=== PATIENT | male | born 1980 | race Caucasian/White ===

== ENCOUNTER 2018-06-23 11:08 | Emergency (ER) | payer OTHER ==
[~2018-06-23] VITALS: Ht 175.3 cm; Wt 75.0 kg
[2018-06-23 12:37] LABS: HEMOGLOBIN 14.4 g/dL (13.5-18.0); MEAN CELL VOLUME 90 fl (78-100); MEAN CORPUSCULAR HEMOGLOBIN 31 pg (27-31); MEAN CORPUSCULAR HGB CONC 35 g/dL (33-37); MEAN PLATELET VOLUME 10.7 fl (7.4-10.4); PLATELET COUNT 154 K/mm3 (130-400); RED BLOOD COUNT 4.58 M/mm3 (4.20-5.60); RED CELL DISTRIBUTION WIDTH 12.4 % (11.5-14.5); WHITE BLOOD COUNT 5.6 K/mm3 (4.8-10.8)
[2018-06-23] MEDS ORDERED: CYPROHEPTADINE H4 M1 PO (12:42)
[2018-06-23] MEDS ORDERED: LEXAPRO 10MG10 MG PO (12:42)
[2018-06-23 12:51] LABS: BAND 1 % (0-10); LYMPHOCYTE 27 % (20-51); MONOCYTE 16 % (3-10); NEUTROPHILS 53 % (42-75)
[2018-06-23] MEDS ORDERED: SEPTRA DS 8001 TAB PO (13:04)
[2018-06-23 13:17] VITALS: BP 111/76
== END 2018-06-23 13:17 | disposition home or self-care (01) ==
LOC: ED 11:08
PROVIDERS: Family Medicine
DX: T63.331A Toxic effect of venom of brown recluse spider, accidental (unintentional), initial encounter (principal); R53.81 Other malaise; R50.9 Fever, unspecified

== ENCOUNTER → 2019-07-18 | Outpatient (CLI) | payer OTHER ==
[~2019-07-18] MED LIST: CYPROHEPTADINE H4 M1 PO; LEXAPRO 10MG10 MG PO; SEPTRA DS 8001 TAB PO
[2019-07-18 09:53] LABS: EOS # 0.3 (0.04-0.40); EOS % 4.6 % (0.0-4.0); HEMATOCRIT 47.2 % (42.0-52.0); HEMOGLOBIN 16.7 g/dL (13.5-18.0); LYMPH# 1.9 (1.50-4.00); MEAN CELL VOLUME 89 fl (78-100); MEAN CORPUSCULAR HEMOGLOBIN 32 pg (27-31); MEAN CORPUSCULAR HGB CONC 35 g/dL (33-37); MEAN PLATELET VOLUME 11.5 fl (7.4-10.4); MONO # 0.4 (0.20-0.80); PLATELET COUNT 182 K/mm3 (130-400); RED BLOOD COUNT 5.29 M/mm3 (4.20-5.60); RED CELL DISTRIBUTION WIDTH 12.1 % (11.5-14.5); WHITE BLOOD COUNT 5.4 K/mm3 (4.8-10.8)
[2019-07-18 10:03] LABS: ALBUMIN 4.6 g/dL (3.5-5.0); POTASSIUM 4.2 mmol/L (3.5-5.1)
[2019-07-18 10:04] LABS: CALCIUM 9.6 mg/dL (8.3-10.5)
[2019-07-18 10:05] LABS: TOTAL PROTEIN 7.5 g/dL (6.4-8.3)
[2019-07-18 10:07] LABS: TOTAL BILIRUBIN 1.4 mg/dL (0.2-1.2)
[2019-07-18 11:01] LABS: ERYTHROCYTE SEDIMENTATION RATE 10 mm/hr (0-15)
== END ==
LOC: LAB 09:39
PROVIDERS: Internal Medicine
DX: Z00.00 Encounter for general adult medical examination without abnormal findings (principal); Z12.5 Encounter for screening for malignant neoplasm of prostate

== ENCOUNTER → 2022-07-14 | Outpatient (CLI) | payer OTHER | LOC: LAB 11:37 | DX: J02.9 Acute pharyngitis, unspecified (principal) ==